=== PATIENT | female | born 1965 | race Caucasian/White ===

== ENCOUNTER 2017-10-23 21:32 | Emergency (ER) | payer OTHER ==
[~2017-10-23] VITALS: Ht 165.1 cm; Wt 102.1 kg
[2017-10-23] MEDS ORDERED: COREG25 MG PO (21:59)
[2017-10-23] MEDS ORDERED: ACYCLOVIR 400400 MG PO (22:00)
[2017-10-23] MEDS ORDERED: SYNTHROID150 MCG PO (22:00)
[2017-10-23] MEDS ORDERED: TRAMADOL 50 MG50 MG PO (22:00)
[2017-10-24] MEDS ORDERED: HYDROCODONE-ACE15 ML PO (01:11)
[2017-10-24 01:48] VITALS: BP 130/77
== END 2017-10-24 01:50 | disposition home or self-care (01) ==
LOC: ER 21:32
DX: J04.0 Acute laryngitis (principal); J06.9 Acute upper respiratory infection, unspecified; H92.01 Otalgia, right ear; I10 Essential (primary) hypertension; Z88.2 Allergy status to sulfonamides; Z88.8 Allergy status to other drugs, medicaments and biological substances

== ENCOUNTER → 2020-02-01 | Outpatient (CLI) | payer OTHER ==
[~2020-02-01] MED LIST: ACYCLOVIR 400400 MG PO; COREG25 MG PO; HYDROCODONE-ACE15 ML PO; SYNTHROID150 MCG PO; TRAMADOL 50 MG50 MG PO
[2020-02-01 15:55] LABS: ABSOLUTE NEUTROPHILS 3.6 thou/uL (1.4-8.2); EOSINOPHILS 2.4 % (0.0-3.0); HEMATOCRIT 38.2 % (37.0-47.0); HEMOGLOBIN 11.9 gm/dL (12.0-15.0); LYMPHOCYTES 35.8 % (24.0-44.0); MCH 25.2 pg (26.0-34.0); MCHC 31.2 g/dL (28.0-37.0); MCV 80.7 fL (80.0-100.0); MONOCYTES 5.8 % (1.0-8.0); PLATELET COUNT 228 thou/uL (150-400); RBC 4.73 mil/uL (4.20-5.00); RDW 17.4 % (10.5-14.5); WBC 6.6 thou/uL (4.0-11.0)
[2020-02-01 16:14] LABS: ALBUMIN 3.9 g/dL (3.4-5.0); ANION GAP 8 mmol/L (7-16); BUN 14 mg/dL (7-18); CALCIUM 9.2 mg/dL (8.5-10.1); CHLORIDE 104 mmol/L (98-107); CHOLESTEROL 166 mg/dL (<200); CO2 30 mmol/L (21-32); CREATININE 1.2 mg/dL (0.6-1.0); GLUCOSE 96 mg/dL (74-106); HDL CHOLESTEROL 66 mg/dL (>40); LDL CHOLESTEROL 80 mg/dL (<100); POTASSIUM 4.2 mmol/L (3.5-5.1); SGOT 18 U/L (15-37); SGPT 27 U/L (30-65); SODIUM 142 mmol/L (136-145); TC:HDL 2.5 Ratio (Not establshd); TOTAL BILIRUBIN 0.5 mg/dL (0.2-1.0); TOTAL PROTEIN 6.9 g/dL (6.4-8.2); TRIGLYCERIDE 104 mg/dL (<150); VLDL 21 mg/dL (<40)
== END ==
LOC: LAB 15:24
PROVIDERS: ATTEND Family Medicine
DX: E78.5 Hyperlipidemia, unspecified (principal); I10 Essential (primary) hypertension

== ENCOUNTER → 2020-12-04 | Outpatient (CLI) | payer OTHER | LOC: ULTRA 11:15 | PROVIDERS: ATTEND Family Medicine | DX: N64.4 Mastodynia (principal); N63.0 Unspecified lump in unspecified breast ==